=== PATIENT | female | born 1995 | race Caucasian/White ===

== ENCOUNTER 2024-07-03 06:14 | Day surgery (SDC) | payer OTHER ==
[2024-07-01 12:17] VITALS: BMI 27.3
[2024-07-03] MEDS ORDERED: ACETAMINOPHEN 325 MG TABLET (FP) PO PRN (08:10)
[2024-07-03] MEDS ORDERED: IBUPROFEN 400 MG TABLET (FP) PO PRN (08:10)
[2024-07-03] MEDS ORDERED: MIDAZOLAM HCL 2 MG/2 ML SINGLE DOSE VIAL ONE (14:08)
[2024-07-03] MEDS ORDERED: oxyCODONE HCL 5 MG TABLET PO PRN (14:19)
[2024-07-03] MEDS ORDERED: ONDANSETRON 4 MG/2 ML VIAL IVPUSH PRN (14:19)
[2024-07-03] MEDS ORDERED: PROMETHAZINE HCL 25 MG/1 ML VIAL IVPB PRN (14:19)
[2024-07-03] MEDS ORDERED: LIDOCAINE HCL/PF 2% SDV 5ML VIAL ONE (14:23)
[2024-07-03] MEDS ORDERED: ONDANSETRON 4 MG/2 ML VIAL ONE (14:23)
[2024-07-03] MEDS ORDERED: DEXAMETHASONE SOD PHOSPHATE 4 MG/1 ML VIAL ONE (14:23)
[2024-07-03] MEDS ORDERED: PROPOFOL 20 ML ONE (14:24)
[2024-07-03] MEDS ORDERED: LACTATED RINGERS SOLUTION 1,000 ML IV SCH (14:30)
[2024-07-03] MEDS ORDERED: KETOROLAC TROMETHAMINE 30 MG/1 ML VIAL ONE (14:52)
[2024-07-03] MEDS ORDERED: SEVOFLURANE 250 ML BTL ONE (14:54)
[2024-07-03 17:03] VITALS: RESP 18
[2024-07-03 17:28] VITALS: BP 107/60; PULSE 68; TEMP 98.9
== END 2024-07-03 17:41 | disposition home or self-care (01) ==
LOC: JASU-SURG 06:14
PROVIDERS: ATTEND Obstetrics & Gynecology
PROC: 0UBC8ZZ Excision of Cervix, Via Natural or Artificial Opening Endoscopic (ICD-10-PCS; principal; 2024-07-03 14:00)
PROC: 0UB98ZZ Excision of Uterus, Via Natural or Artificial Opening Endoscopic (ICD-10-PCS; 2024-07-03 14:00)
DX: N94.6 Dysmenorrhea, unspecified (principal); N84.0 Polyp of corpus uteri; N84.1 Polyp of cervix uteri
CPT/HCPCS: 81025; 88305-TC; 94760

== ENCOUNTER 2024-08-19 21:47 | Emergency (ER) | payer OTHER ==
[2024-08-19 22:10] VITALS: BP 97/68; PULSE 65; RESP 18; TEMP 98.2; BMI 28.3
[2024-08-19] MEDS ORDERED: ACETAMINOPHEN 500 MG TABLET (FP) ONE (23:00)
[2024-08-19] MEDS: ACETAMINOPHEN 500 MG TABLET (FP) PO ONE (23:19)
== END 2024-08-19 23:53 | disposition home or self-care (01) ==
LOC: JER 21:47
DX: O20.9 Hemorrhage in early pregnancy, unspecified (principal); O26.891 Other specified pregnancy related conditions, first trimester; R10.30 Lower abdominal pain, unspecified; Z3A.01 Less than 8 weeks gestation of pregnancy
CPT/HCPCS: 76817-TC; 99284-25